=== PATIENT | female | born 1945 | race Caucasian/White ===

== ENCOUNTER 2017-05-28 10:10 | Emergency (ER) | payer OTHER, MEDICARE | END 2017-05-28 11:47 | disposition home or self-care (01) | LOC: ER 10:10 | DX: S62.102A Fracture of unspecified carpal bone, left wrist, initial encounter for closed fracture (principal); I10 Essential (primary) hypertension; W18.39XA Other fall on same level, initial encounter; Y93.89 Activity, other specified; Y92.89 Other specified places as the place of occurrence of the external cause; Y99.8 Other external cause status | CPT/HCPCS: 29125; 73110; 99284-25 ==

== ENCOUNTER → 2017-06-12 | Outpatient (CLI) | payer OTHER | END | disposition home or self-care (01) | LOC: MAMMO 08:05 | DX: Z12.31 Encounter for screening mammogram for malignant neoplasm of breast (principal) | CPT/HCPCS: 77067 ==

== ENCOUNTER → 2018-05-24 | Outpatient (CLI) | payer OTHER ==
[2017-05-28 10:32] VITALS: BP 180/77
[~2018-05-24] MED LIST: ACET-704 PO; REGADENOSON 0.4 MG/5 ML DISP.SYRIN. IV ONE
--- NOTE | 2018-05-24 12:42 | RAD ---
MR#: [id number] Date of Study: 05/24/2018 Ordering Physician: DANIEL TOM, Referring Physician: PIEDAD BURTON Tech: DARIAN Del Rio APPROVED REPORT Test Type: Pharmacological Stress Nurse/Tech: Mari Morse R.N. Test Indications: FOLEY Cardiac History: htn Medications: see ehr Medical History: parkinson Resting ECG: sr Resting Heart Rate: 74 bpm Resting Blood Pressure: 121/69mmHg Pretest Chest Pain: No chest pain Nurse/Tech Notes lungs cta, heart tones regular Consent: The procedure was explained to the patient in lay terms. Informed consent was witnessed. Chon eout was entered into [facility]. History and Stress Test performed by VENKAT Islas, ARRT (R) (N) Pharm. Details Pharmacologic stress testing was performed using 0.4mg per 5ml of regadenoson given intravenously ove r 7-10 seconds. Stress Symptoms No chest pain or symptoms. POST EXERCISE Reason for Termination: Infusion complete Target HR: No Max HR: 112 bpm Max Blood Pressure: 147/70mmHg Chest Pain: No. Arrhythmia: No. ST Change: No. INTERPRETATION Stress EKG Conclusion: Baseline EKG showed sinus rhythm. No ischemic changes at peak stress. No arr hythmias. Imaging Protocol IMAGE PROTOCOL: Rest Tc-99m/stress Tc-99m 1 day Rest: Stress: Viability: Radiopharm.Tc99m [id number] Sestamibi Dose11.1mCi 32mCi Duration 15min. 13min. Img Date 05/24/2018 05/24/2018 Inj-Img Gfcl97ocd. 60min. STRESS DATA End Diast. Vol.45.0mlLVEDV index BSA26.0ml End Syst. Vol.4.0mlLVESV index BSA2.0ml Myocardial Skqq859.0gEject. Fotegrep30.0% Stress Scores Regional WT1.00Summed WT10.00 Regional WM0.00Summed WM0.00 Study quality was good. Left Ventricular size was Normal at Rest and Stress. Lung uptake was . Left Ventricular ejection fraction is >80%. The rest and stress images show normal perfusion, normal contraction and thickening. LV Perf. Quant 17 Seg. SSS0.00 17 Seg. SRS3.00 17 Seg. SDS0.00 Stress Defect Extent (% LAD)0.00Rest Defect Extent (% LAD)8.10Rev. Defect Extent (% LAD)0.00 Stress Defect Extent (% LCX) 0.00Rest Defect Extent (% LCX)0.00Rev. Defect Extent (% LCX)0.00 Stress Defect Extent (% RCA)0.00Rest Defect Extent (% RCA)0.00Rev. Defect Extent (% RCA)0.00 Stress Defect Extent (% PERLITA)0.00Rest Defect Extent (% PERLITA)4.80Rev. Defect Extent (% PERLITA)0.00 Conclusion 1. Regadenoson cardioisotope stress test did not show any evidence of ischemia or infarct. 2. Normal left ventricular systolic function with ejection fraction calculated at >80%. 3. Low risk for cardiac events. Signed by : Neftali Reynoso, Electronically Approved : 05/24/2018 12:40:32
== END | disposition home or self-care (01) ==
LOC: NM 08:49
PROVIDERS: ATTEND Family Medicine
DX: R06.09 Other forms of dyspnea (principal); R07.2 Precordial pain; I10 Essential (primary) hypertension; Z79.01 Long term (current) use of anticoagulants
CPT/HCPCS: 78452; 93017; 96374; J2785; A9500

== ENCOUNTER → 2018-06-14 | Outpatient (CLI) | payer OTHER ==
[2017-05-28 10:32] VITALS: BP 180/77
[~2018-06-14] MED LIST changes: -REGADENOSON 0.4 MG/5 ML DISP.SYRIN. IV ONE
--- NOTE | 2018-06-14 16:43 | RAD ---
DATE: 06/14/2018 EXAM: MAMMO NANCY SCREENING BILATERAL HISTORY: Annual screening COMPARISON: 07/11/2016 and 06/12/2017 screening mammographic exams This study was interpreted with the benefit of Computerized Aided Detection (CAD). Breast Density: SCATTERED The breast parenchyma shows scattered fibroglandular densities. Breast parenchyma level B. FINDINGS: Benign calcifications are present. No new masses or distortion. Small masses bilaterally are present but are stable compared to previous exam. IMPRESSION: Benign findings. Stable. BI-RADS CATEGORY: 2 BENIGN FINDING(S) RECOMMENDED FOLLOW-UP: 12M 12 MONTH FOLLOW-UP PQRS compliance statement: Patient information was entered into a reminder system with a target due date in one year for the next mammogram. Mammography is a sensitive method for finding small breast cancers, but it does not detect them all and is not a substitute for careful clinical examination. A negative mammogram does not negate a clinically suspicious finding and should not result in delay in biopsying a clinically suspicious abnormality. "Our facility is accredited by the [employer] Mammography [employer]."
== END | disposition home or self-care (01) ==
LOC: MAMMO 07:45
PROVIDERS: ATTEND Family Medicine
DX: Z12.31 Encounter for screening mammogram for malignant neoplasm of breast (principal); N63.20 Unspecified lump in the left breast, unspecified quadrant; N63.10 Unspecified lump in the right breast, unspecified quadrant
CPT/HCPCS: 77063; 77067

== ENCOUNTER → 2019-06-16 | Outpatient (CLI) | payer OTHER ==
[2017-05-28 10:32] VITALS: BP 180/77
--- NOTE | 2019-06-16 09:05 | RAD ---
History: Routine screening. Technique: Bilateral digital mammographic routine views were obtained with 2-D and 3-D technique, including CAD - computer aided detection. Comparison: 06/14/2018. Findings: Breast Tissue Density B :The breast tissue is composed of mixed fatty and fibroglandular tissue. There are no suspicious masses, microcalcifications or areas of architectural distortion. Impression: Negative mammogram. BI-RADS Category 1: Negative. Normal interval followup. A mammogram does not have 100% sensitivity and therefore a negative imaging study should not delay further work up of a suspicious abnormality. The patient will receive a letter with the results in the mail. Patient information is entered into the reminder system with a target due date for the next screening mammogram. The patient will receive a reminder. "Our facility is accredited by the [employer] Mammography [employer]." BI-RADS 1 -- negative findings (within normal)
== END | disposition home or self-care (01) ==
LOC: MAMMO 07:45
PROVIDERS: ATTEND Family Medicine
DX: Z12.31 Encounter for screening mammogram for malignant neoplasm of breast (principal)
CPT/HCPCS: 77063; 77067

== ENCOUNTER → 2020-01-18 | Outpatient (CLI) | payer OTHER ==
[2017-05-28 10:32] VITALS: BP 180/77
--- NOTE | 2020-01-18 15:02 | RAD ---
EXAM: 3 views right knee DATE: 01/18/2020 2:29 PM INDICATION: Reason: RIGHT MEDIAL KNEE PAIN. / Spl. Instructions: / History: COMPARISON: No Prior FINDINGS: Decreased bone mineral density. A longitudinal lucency is seen extending from the tibial spine to the medial tibial metaphysis equivocal for nondisplaced fracture, seen only on the oblique view. Small right knee joint effusion. IMPRESSION: 1. Decreased bone mineral density. 2. Equivocal fracture of the medial tibia extending from the tibial spine to the medial metaphysis is only seen on one view. This may represent fracture at this corresponds to patient's symptoms, cross-sectional imaging such as CT or MRI would provide additional details if clinically indicated. Electronically signed by: Mukesh Campo MD (01/18/2020 2:59 PM) KILLIAN
== END | disposition home or self-care (01) ==
LOC: RAD 13:19
PROVIDERS: ATTEND Family Medicine
DX: S82.51XA Displaced fracture of medial malleolus of right tibia, initial encounter for closed fracture (principal); M25.461 Effusion, right knee; X58.XXXA Exposure to other specified factors, initial encounter; Y93.89 Activity, other specified; Y92.89 Other specified places as the place of occurrence of the external cause; Y99.8 Other external cause status
CPT/HCPCS: 73562

== ENCOUNTER 2020-01-20 08:00 | Inpatient (IN) | payer OTHER ==
[~2020-01-20] VITALS: Ht 157.5 cm; Wt 77.4 kg
[2020-01-20 09:20] VITALS: BP 121/70
[2020-01-20] MEDS ORDERED: CARB1TAB47 PO (09:58)
[2020-01-20] MEDS ORDERED: HYDR12.58 PO (09:58)
[2020-01-20] MEDS ORDERED: ALEN70TA6 PO (09:58)
[2020-01-20 11:00] VITALS: BP 123/76
[2020-01-20] MEDS ORDERED: IBUPROFEN 400 MG TABLET. PO PRN (11:00)
[2020-01-20] MEDS ORDERED: traMADol 50 MG TABLET PO PRN (11:00)
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
[2020-01-20 15:00] VITALS: BP 142/75
--- NOTE | 2020-01-20 15:43 | RAD ---
Examination: CT LOWER EXTREMITY WO RIGHT History: Possible proximal tibia fracture, pain Comparison/Correlation: 3V right knee x-rays and 01/18/2020 Findings: Axial images of the right distal lower fibula were obtained without contrast. Sagittal and coronal reformatted images were provided. Small joint effusion is present. Marked osteopenia is present. There is no fracture identified. Mild spurring about the patella is present. Medial and lateral compartments of the knee have unremarkable joint spaces without significant degenerative narrowing. Very small osteochondral lesion involves the posterior weightbearing aspect of the medial femoral condyle measuring less than 0.3 cm diameter. Soft tissues are grossly unremarkable. The tibiotalar joint is unremarkable. Impression: Small knee joint effusion. No fracture. PQRS Compliance Statement: One or more of the following individualized dose reduction techniques were utilized for this examination: 1. Automated exposure control 2. Adjustment of the mA and/or kV according to patient size 3. Use of iterative reconstruction technique Electronically signed by: Stanislav De La Paz MD (01/20/2020 3:41 PM) [id number]
[2020-01-20] MEDS: CARBIDOPA/LEVODOPA 25/100MG TABLET PO SCH ×2 (17:20→21:00)
[2020-01-20 19:00] VITALS: BP 122/66
[2020-01-20 23:00] VITALS: BP 119/55
[2020-01-21 03:00] VITALS: BP 116/59
[2020-01-21 07:00] VITALS: BP 138/78
[2020-01-21] MEDS: CARBIDOPA/LEVODOPA 25/100MG TABLET PO SCH ×2 (08:56→14:24)
[2020-01-21] MEDS ORDERED: hydroCHLOROthiazide 12.5 MG CAPSULE PO SCH (09:00)
--- NOTE | 2020-01-21 09:51 | PDOC2 ---
CONSULT Date of Consult Date of Consult DATE: 01/21/20 TIME: 09:48 Reason for Consult Reason for Consult: Right knee pain Referring Physician Referring Physician: Ritesh Identification/Chief Complaint Chief Complaint Right knee pain Source Source: Chart review, Patient History of Present Illness Reason for Visit: Patient is a very pleasant 74-year-old female who was admitted for frequent falls and development of right knee pain that was limiting her ability to ambulate recently. She tells me the pain is much better, she has been walking around her hospital room this morning and tells me that it does not really hurt anymore. She does not have any radiation of any pain. She does feel that occasionally if she has been really active in the past. Past Medical History Cardiovascular: HTN Pulmonary: No pertinent hx Musculoskeletal: Osteoarthritis Past Surgical History Past Surgical History: No pertinent history Current Medications Current Medications Current Medications Ibuprofen (Motrin) 400 mg PRN Q6HRS PRN PO INFLAMMATION Last administered on 01/20/20at 21:00; Start 01/20/20 at 11:00 Tramadol HCl (Ultram) 50 mg PRN Q6HRS PRN PO PAIN; Start 01/20/20 at 11:00 Carbidopa/Levodopa (Sinemet 25/100) 1 tab TID PO Last administered on 01/21/20at 08:56; Start 01/20/20 at 14:00 Hydrochlorothiazide (Microzide) 12.5 mg DAILY PO Last administered on 01/21/20at 08:56; Start 01/21/20 at 09:00 Active Scripts Active Tylenol With Codeine #3 Tablet (Acetaminophen/Codeine Phosphate) 1 Each Tablet 1 Tab PO PRN Q6HRS PRN Reported Alendronate Sodium 70 Mg Tablet 70 Mg PO WEEKLY Hydrochlorothiazide Tablet (Hydrochlorothiazide) 12.5 Mg Tablet 12.5 Mg PO DAILY Carbidopa-Levo 25-100 Mg Odt (Carbidopa/Levodopa) 1 Each Tab.rapdis 1 Each PO T ID Allergies Allergies: Coded Allergies: No Known Drug Allergies (Unverified , 05/28/17) ROS General: No: Chills, Night Sweats, Fatigue, Malaise, Appetite, Other PSYCHOLOGICAL ROS: No: Anxiety, Behavioral Disorder, Concentration difficultie, Decreased libido, Depression, Disorientation, Hallucinations, Hostility, Irritablity, Memory difficulties, Mood Swings, Obsessive thoughts, Physical abuse, Sexual abuse, Sleep disturbances, Suicidal ideation, Other Eyes: No Blurry vision, No Decreased vision, No Double vision, No Dry eyes, No Excessive tearing, No Eye Pain, No Itchy Eyes, No Loss of vision, No Photophobia, No Scotomata, No Uses contacts, No Uses glasses, No Other HEENT: No: Heacaches, Visual Changes, Hearing change, Nasal congestion, Nasal d ischarge, Oral lesions, Sinus pain, Sore Throat, Epistaxis, Sneezing, Snoring, Tinnitus, Vertigo, Vocal changes, Other ALLERGY AND IMMUNOLOGY: No: Hives, Insect Bite Sensitivity, Itchy/Watery Eyes, Nasal Congestion, Post Nasal Drip, Seasonal Allergies, Other Hematological and Lymphatic: No: Bleeding Problems, Blood Clots, Blood Transfusions, Brusing, Night Sweats, Pallor, Swollen Lymph Nodes, Other ENDOCRINE: No: Breast Changes, Galactorrhea, Hair Pattern Changes, Hot Flashes, Malaise/lethargy, Mood Swings, Palpitations, Polydipsia/polyuria, Skin Changes, Temperature Intolerance, Unexpected Weight Changes, Other Respiratory: No: Cough, Hemoptysis, Orthopnea, Pleuritic Pain, Shortness of breath, SOB with excertion, Sputum Changes, Stridor, Tachypnea, Wheezing, Other Cardiovascular: No Chest Pain, No Palpitations, No Orthopnea, No Paroxysmal Noc. Dyspnea, No Edema, No Lt Headedness, No Other Gastrointestinal: No Nausea, No Vomiting, No Abdominal Pain, No Diarrhea, No Constipation, No Melena, No Hematochezia, No Other Genitourinary: No Dysuria, No Frequency, No Incontinence, No Hematuria, No Retention, No Discharge, No Urgency, No Pain, No Flank Pain, No Other, No , No , No , No , No , No , No Musculoskeletal: Yes Joint Pain Neurological: Yes Gait Disturbance; No Behavorial Changes, No Bowel/Bladder ControlChng, No Confusion, No Dizziness, No Headaches, No Impaired Coord/balance, No Memory Loss, No Numbness/Tingling, No Seizures, No Speech Problems, No Tremors, No Visual Changes, No Weakness, No Other Skin: No Dry Skin, No Eczema, No Hair Changes, No Lumps, No Mole Changes, No Mottling, No Nail Changes, No Pruritus, No Rash, No Skin Lesion Changes, No Other, No Acne Physical Exam General: Alert, Oriented X3, No acute distress HEENT: Atraumatic, EOMI Lungs: Other (Respirations are unlabored with symmetric chest rise) Heart: Regular rate Abdomen: Soft, No tenderness Extremities: No edema, Normal pulses Skin: No rashes Neuro: Normal speech, Strength at 5/5 X4 ext, Sensation intact Psych/Mental Status: Mental status NL, Mood NL MUSCULOSKELETAL: Other (Examination of her right lower extremity reveals mild tenderness at the medial joint line. Knee is stable. She ambulates with a s lightly antalgic gait pattern. No effusion.) Vitals VITALS Vital Signs Date Time Temp Pulse Resp B/P (MAP) Pulse Ox O2 Delivery O2 Flow Rate FiO2 01/21/20 07:00 98.2 79 16 138/78 (98) 95 Room Air 98.2 Images Images X-rays and CAT scan were reviewed Assessment/Plan Assessment/Plan From my standpoint, she can be discharged today. I encouraged walker use. She can follow-up with orthopedics on an as-needed basis. FAMILIA ODOM II, MD Jan 21, 2020 09:51
[2020-01-21 11:00] VITALS: BP 125/76
--- NOTE | 2020-01-21 12:17 | SNU/HH DC ---
DISCHARGE WITH HOME HEALTH DISCHARGE INFORMATION: Discharge Date: Jan 21, 2020 Condition on Discharge: Stable CODE STATUS: Code Status: Full HOME HEALTH: Face to Face: I certify this patient is under my care and that I, or a nurse practitioner or linda cintron's medical assistant secretary working with me, had a face to face encounter that meets the physician face to face encounter requirements with this patient on 01/21/20. Medical Complications: Falls Half-Way For: Assess & Educate Safety, Assess/Skilled Observatio RN For Eval/Treatment: Yes Physical Therapy For: Evalulation/Treatment Occupational Therapy For: Evaluation/Treatment Pt Meets Homebound Status: Poor coordination w/ amb., Unsteady balance w/ amb,, Frequent falls w/ injury, Limited distance walking POST DISCHARGE ORDERS: Activity Instructions for Disc: Activity as tolerated Weight Bearing Status after Di: Full weight bearing DIET AFTER DISCHARGE: Regular CERTIFICATION STATEMENT: Certification Statement: Certification Statement: Based on the above finding, I certify that this patient is confined to the home and needs intermittent mcc care, physical therapy and/or speech therapy, or continues to need occupational therapy.~ This patient is under my care, and I have initiated the establishment of the plan of care.~ This patient will be followed by myself or a community physician who will periodically review the plan of care. Home Meds Active Scripts Acetaminophen With Codeine (TYLENOL WITH CODEINE #3 TABLET) 1 Each Tablet, 1 TAB PO PRN Q6HRS PRN for PAIN, #15 TAB Prov:JUANPABLO HILL APRN 05/28/17 Reported Medications Alendronate Sodium (ALENDRONATE SODIUM) 70 Mg Tablet, 70 MG PO WEEKLY for OSTEOPOROSIS, TAB 01/20/20 Hydrochlorothiazide (HYDROCHLOROTHIAZIDE TABLET) 12.5 Mg Tablet, 12.5 MG PO DAILY for DIURETIC, TAB 0 Refills 01/20/20 Carbidopa/Levodopa (CARBIDOPA-LEVO 25-100 MG ODT) 1 Each Tab.rapdis, 1 EACH PO TID for PARKINSONS, TAB 01/20/20 NIRAJ SEAMAN MD Jan 21, 2020 12:17
--- NOTE | 2020-01-21 13:52 | DS ---
DATE OF DISCHARGE: 01/21/2020 PRIMARY DIAGNOSES: Fall with right knee pain and inability to ambulate, suspected tibial plateau fracture. CHIEF COMPLAINT AND HISTORY OF PRESENT ILLNESS: This 74-year-old white female with Parkinson's and osteoporosis, had a fall a week prior to admission, landing on her right knee and had been having increased medial right knee pain. Since then, she has had marked difficulty ambulating, was seen in the clinic on 01/17 and felt to have a possible tibial plateau fracture. She was admitted because of the difficulty ambulation for Ortho consultation and further evaluation. SUMMARY OF STAY: The patient was admitted and underwent CT scanning of the right leg showing no definite fracture. By the day of admission, she felt her pain was much, much better. She was able to ambulate. Ortho conferred and agreed as ____ physical therapy, feeling she would benefit from some home health physical therapy for a week or 2 and the patient was discharged on the . DISPOSITION: The patient is discharged to home. DIET: Regular diet. ACTIVITY: As tolerated. Dr. Awad followup in 1 week. DISCHARGE MEDICATIONS: Listed on the med rec and have been addressed. NIRAJ SEAMAN MD DR: VESTA/sara JOB#: [id number] / [id number] JUSTINA Caballero MD
--- NOTE | 2020-01-21 15:54 | NUR ---
Discharge Note: PT DISCHARGED HOME WITH [facility]. PT LEFT FACILITY VIA PRIVATE VEHICLE WITH DAUGHTER AT 1549. PT STABLE AND ALERT UPON DISCHARGE. PT PIV REMOVED FROM R FA WITHOUT COMPLICATIONS, BANDAGE APPLIED. PT EDUCATED ABOUT DISCHARGE INSTRUCTIONS, DISCHARGE MEDICATIONS, AND FOLLOW-UP CARE. PT EDUCATED ABOUT SAFETY FOR TRANSFERS AT HOME USING HER WALKER AT ALL TIMES. PT PROVIDED EDUCATED ABOUT HER KNEE EFFUSION WITH EDUCATION TO ELEVATE AND ICE KNEE WITH REST. NO CONCERNS VOICED AT THIS TIME. PT LEFT WITH ALL PERSONAL BELONGINGS. YAMILKA ARCINIEGA Discharge instructions and discharge home medications reviewed with Patient and a copy given. All questions have been answered and understanding verbalized.
== END 2020-01-21 15:39 | disposition home health service (06) | DRG 556 ==
LOC: 5 NORTH 08:00
PROVIDERS: ADMIT Family Medicine; ATTEND Family Medicine
DX: M25.561 Pain in right knee (principal); G20 Parkinson's disease; M81.0 Age-related osteoporosis without current pathological fracture; R29.6 Repeated falls; M19.90 Unspecified osteoarthritis, unspecified site; I10 Essential (primary) hypertension
CPT/HCPCS: 73700; 97535-GO; G0378

== ENCOUNTER → 2020-06-18 | Outpatient (CLI) | payer OTHER ==
[~2020-06-18] MED LIST changes: +ALEN70TA71 PO; +CARB1TAB47 PO; +HYDR12.58 PO
--- NOTE | 2020-06-18 11:03 | RAD ---
DATE: 06/18/2020 7:51 AM EXAM: MAMMO NANCY SCREENING BILATERAL HISTORY: Screening COMPARISON: 06/16/2019, 06/14/2018 Bilateral CC and MLO views of the breasts were performed. Bilateral breast tomosynthesis was performed in CC and MLO projections. This study was interpreted with the benefit of Computerized Aided Detection (CAD). FINDINGS: Breast Density: SCATTERED The breast parenchyma shows scattered fibroglandular densities. Breast parenchyma level B No suspicious masses, microcalcifications or architectural distortion is present to suggest malignancy in either breast. The visualized axillae are unremarkable. IMPRESSION: No mammographic evidence of malignancy. BI-RADS CATEGORY: 1 NEGATIVE RECOMMENDED FOLLOW-UP: 12M 12 MONTH FOLLOW-UP Annual screening mammography is recommended, unless clinically indicated sooner based on symptoms or change in physical exam. PQRS compliance statement: Patient information was entered into a reminder system with a target due date for the next mammogram. Mammography is a sensitive method for finding small breast cancers, but it does not detect them all and is not a substitute for careful clinical examination. A negative mammogram does not negate a clinically suspicious finding and should not result in delay in biopsying a clinically suspicious abnormality. "Our facility is accredited by the [employer] Mammography Program."
== END ==
LOC: MAMMO 08:21
PROVIDERS: ATTEND Family Medicine
DX: Z12.31 Encounter for screening mammogram for malignant neoplasm of breast (principal)
CPT/HCPCS: 77063; 77067

== ENCOUNTER → 2020-11-30 | Outpatient (CLI) | payer OTHER ==
--- NOTE | 2020-11-30 12:13 | KCIC ---
Bone Densitometry History: Menopause Findings: Bone Densitometry was performed with dual photon absorption of the lumbar spine and proximal femurs. Lumbar Spine: Bone density is 0.892 g/cm2 for L1-L4. T-score is -1.4. Z-score is 1.0. Left femoral neck: Bone density is 0.671 g/cm2. T-score is -2.2. Z-score is -0.5. IMPRESSION: Osteopenia. World Health Organization definition of osteoporosis and osteopenia for women: normal equal s T score at or above -1.0 standard deviations; osteopenia equals T score between -1.0 and -2.5 stand mahendra deviations; osteoporosis equals T score at or below -2.5 standard deviations. Electronically signed by: Elvira Durant MD (11/30/2020 12:10 PM) [id number]
== END ==
LOC: KCIC DEXA 09:09
PROVIDERS: ATTEND Family Medicine
DX: M85.80 Other specified disorders of bone density and structure, unspecified site (principal); M81.0 Age-related osteoporosis without current pathological fracture
CPT/HCPCS: 77080

== ENCOUNTER → 2021-06-19 | Outpatient (CLI) | payer OTHER ==
--- NOTE | 2021-06-19 16:15 | RAD ---
Bilateral digital screening 2-D and 3-D (digital breast tomosynthesis) mammogram: Reason for examination: Routine screening. Comparison: Mammogram from 06/18/2020. Interpretation was made with the benefit of CAD. FINDINGS: Breast density: Category B. There are scattered areas of fibroglandular density. No suspicious breast mass, malignant appearing calcifications, or architectural distortion is seen. IMPRESSION: No evidence of malignancy. Assessment: BI-RADS 1. Negative. Recommendation: Routine screening mammograms. The patient will receive a letter with the results in the mail. Patient information will be entered i nto the mammography reminder system with a target recall date for the next mammogram. A reminder reynaldo er will be generated. Electronically signed by: Idalia Ochoa MD (06/19/2021 4:12 PM) [id number]
== END ==
LOC: MAMMO 10:07
PROVIDERS: ATTEND Family Medicine
DX: Z12.31 Encounter for screening mammogram for malignant neoplasm of breast (principal)
CPT/HCPCS: 77063; 77067